=== PATIENT | female | born 1980 | race American Indian/Alaskan Native ===

== ENCOUNTER 2017-04-17 21:22 | Emergency (ER) | payer MEDICAID ==
[2017-04-17 21:56] LABS: Hematocrit 39.7 % (30.3-42.9); Hemoglobin 13.4 gm/dl (10.1-14.3); Mean Corpuscular HGB Conc 34 % (30-34); Mean Corpuscular Hemoglobin 29 pg (28-32); Mean Corpuscular Volume 86 fl (79-97); Platelet Count 356 K/mm3 (140-440); Red Cell Distribution Width 12.5 % (13.2-15.2); White Blood Count 14.1 K/mm3 (4.5-11.0)
[2017-04-17 22:12] LABS: Anion Gap 21 mmol/L; BUN/Creatinine Ratio 15; Blood Urea Nitrogen 12 mg/dL (7-17); Calcium 8.9 mg/dL (8.4-10.2); Carbon Dioxide 23 mmol/L (22-30); Chloride 98.6 mmol/L (98-107); Potassium 3.9 mmol/L (3.6-5.0); Sodium 139 mmol/L (137-145)
[2017-04-17 22:21] LABS: Glucose 510 mg/dL (65-100)
[2017-04-17 22:28] LABS: Basophils % (Manual) 0 % (0.0-1.8); Blastocytes % (Manual) 0 %; Eosinophils % (Manual) 0 % (0.0-4.3)
[2017-04-17 22:29] LABS: Diff Status Complete; RBC Morphology Normal
[2017-04-18] MEDS ORDERED: NACL 0.9% 1000 ML ONE (03:14)
[2017-04-18] MEDS ORDERED: NACL 0.9% 1000 ML 1,000 ML IV ONE (03:14)
--- NOTE | 2017-04-18 03:14 | Emergency Department Report ---
HPI - General Chief Complaint: Headache Time Seen by Provider: 04/18/17 03:08 - HPI HPI: Room 3 The patient is a 36-year-old female presenting with a chief complaint of hyperglycemia. The patient states she ran out of her insulin 2 days ago and was given a prescription however secondary to insurance she has not been able to get filled. Patient is to polyuria and polydipsia. The patient states she came to the emergency department because she knew her blood sugar was elevated and she wanted to be treated before she developed nausea and vomiting. Patient does not mention any other complaints Location: See above Duration: 2 days Quality: Hyperglycemia Severity: Moderate Modifying factors: [see above] Context: [see above] Mode of transportation: Unknown ED Past Medical Hx - Past Medical History Hx Diabetes: Yes Hx Asthma: Yes - Surgical History Additional Surgical History: C/S - Family History Family history: no significant - Social History Smoking Status: Never Smoker Substance Use Type: None - Medications Home Medications: Home Medications Medication Instructions Recorded Confirmed Last Taken Type Insulin Aspart [Novolog] 7 unit SQ AC 04/18/17 04/18/17 Unknown History Insulin Detemir [Levemir] 15 units SUB-Q QHS 04/18/17 04/18/17 Unknown History ED Review of Systems ROS: Stated complaint: MIGRANE HEADACHE Other details as noted in HPI Comment: All other systems reviewed and negative Constitutional: denies: chills, fever Eyes: denies: eye pain, eye discharge, vision change ENT: denies: ear pain, throat pain Respiratory: denies: cough, shortness of breath, wheezing Cardiovascular: denies: chest pain, palpitations Endocrine: increased thirst, increased urine Gastrointestinal: denies: abdominal pain, nausea, diarrhea Genitourinary: denies: urgency, dysuria, discharge Musculoskeletal: denies: back pain, joint swelling, arthralgia Skin: denies: rash, lesions Psychiatric: denies: anxiety, depression Hematological/Lymphatic: denies: easy bleeding, easy bruising Physical Exam - Physical Exam Vital Signs: Vital Signs 04/17/17 21:29 Temperature 98.2 F Pulse Rate 97 H Respiratory 20 Rate Blood Pressure 171/92 O2 Sat by Pulse 99 Oximetry Physical Exam: GENERAL: The patient is well-developed well-nourished female lying on stretcher not appearing to be in acute distress. [] HEENT: Normocephalic. Atraumatic. Extraocular motions are intact. Patient has moist mucous membranes. NECK: Supple. No meningitic signs are noted. No nuchal rigidity. Trachea midline CHEST/LUNGS: Clear to auscultation. There is no respiratory distress noted. HEART/CARDIOVASCULAR: Regular. There is no tachycardia. There is no gallop rub or murmur. ABDOMEN: Abdomen is soft, nontender. Patient has normal bowel sounds. There is no abdominal distention. SKIN: There is no rash. There is no edema. There is no diaphoresis. NEURO: The patient is awake, alert, and oriented. The patient is cooperative. The patient has normal speech. Cranial nerves II through XII grossly intact, no drift MUSCULOSKELETAL: There is no evidence of acute injury. ED Course Vital Signs 04/17/17 21:29 Temperature 98.2 F Pulse Rate 97 H Respiratory 20 Rate Blood Pressure 171/92 O2 Sat by Pulse 99 Oximetry - Reevaluation(s) Reevaluation #1: 04/18/17 04:39 Accu-Chek 258 ED Medical Decision Making - Lab Data Result diagrams: 04/17/17 21:40 04/18/17 03:08 Laboratory Tests 04/17/17 04/17/17 04/17/17 21:39 21:40 21:40 WBC 14.1 H RBC 4.60 Hgb 13.4 Hct 39.7 MCV 86 MCH 29 MCHC 34 RDW 12.5 L Plt Count 356 Lymph # Gold Reclaimer Add Manual Diff Complete Total Counted 100 Seg Neuts % (Manual) 67.0 Band Neutrophils % 0 Lymphocytes % (Manual) 26.0 Reactive Lymphs % (Man) 0 Monocytes % (Manual) 7.0 Eosinophils % (Manual) 0 Basophils % (Manual) 0 Metamyelocytes % 0 Myelocytes % 0 Promyelocytes % 0 Blast Cells % 0 Nucleated RBC % Not Reportable Seg Neutrophils # Man 9.4 H Band Neutrophils # 0.0 Lymphocytes # (Manual) 3.7 Abs React Lymphs (Man) 0.0 Monocytes # (Manual) 1.0 H Eosinophils # (Manual) 0.0 Basophils # (Manual) 0.0 Metamyelocytes # 0.0 Myelocytes # 0.0 Promyelocytes # 0.0 Blast Cells # 0.0 WBC Morphology Not Reportable Hypersegmented Neuts Not Reportable Hyposegmented Neuts Not Reportable Hypogranular Neuts Not Reportable Smudge Cells Not Reportable Toxic Granulation Not Reportable Toxic Vacuolation Not Reportable Dohle Bodies Not Reportable Pelger-Huet Anomaly Not Reportable Zbigniew Rods Not Reportable Platelet Estimate Appears normal Clumped Platelets Not Reportable Plt Clumps, EDTA Not Reportable Large Platelets Not Reportable Giant Platelets Not Reportable Platelet Satelliting Not Reportable Plt Morphology Comment Not Reportable RBC Morphology Normal Dimorphic RBCs Not Reportable Polychromasia Not Reportable Hypochromasia Not Reportable Poikilocytosis Not Reportable Anisocytosis Not Reportable Microcytosis Not Reportable Macrocytosis Not Reportable Spherocytes Not Reportable Pappenheimer Bodies Not Reportable Sickle Cells Not Reportable Target Cells Not Reportable Tear Drop Cells Not Reportable Ovalocytes Not Reportable Helmet Cells Not Reportable Bhardwaj-[place]olita Bodies Not Reportable [place] Rings Not Reportable Loman Cells Not Reportable Bite Cells Not Reportable Crenated Cell Not Reportable Elliptocytes Not Reportable Acanthocytes (Spur) Not Reportable Rouleaux Not Reportable Hemoglobin C Crystals Not Reportable Schistocytes Not Reportable Malaria parasites Not Reportable Link Bodies Not Reportable Hem Pathologist Commnt No VBG pH Sodium 139 Potassium 3.9 Chloride 98.6 Carbon Dioxide 23 Anion Gap 21 BUN 12 Creatinine 0.8 Estimated GFR > 60 BUN/Creatinine Ratio 15 Glucose 510 H* POC Glucose 446 H Calcium 8.9 HCG, Qual 04/17/17 04/17/17 21:40 21:40 WBC RBC Hgb Hct MCV MCH MCHC RDW Plt Count Lymph # Add Manual Diff Total Counted Seg Neuts % (Manual) Band Neutrophils % Lymphocytes % (Manual) Reactive Lymphs % (Man) Monocytes % (Manual) Eosinophils % (Manual) Basophils % (Manual) Metamyelocytes % Myelocytes % Promyelocytes % Blast Cells % Nucleated RBC % Seg Neutrophils # Man Band Neutrophils # Lymphocytes # (Manual) Abs React Lymphs (Man) Monocytes # (Manual) Eosinophils # (Manual) Basophils # (Manual) Metamyelocytes # Myelocytes # Promyelocytes # Blast Cells # WBC Morphology Hypersegmented Neuts Hyposegmented Neuts Hypogranular Neuts Smudge Cells Toxic Granulation Toxic Vacuolation Dohle Bodies Pelger-Huet Anomaly Zbigniew Rods Platelet Estimate Clumped Platelets Plt Clumps, EDTA Large Platelets Giant Platelets Platelet Satelliting Plt Morphology Comment RBC Morphology Dimorphic RBCs Polychromasia Hypochromasia Poikilocytosis Anisocytosis Microcytosis Macrocytosis Spherocytes Pappenheimer Bodies Sickle Cells Target Cells Tear Drop Cells Ovalocytes Helmet Cells Bhardwaj-Lolita Bodies [place] Rings Loman Cells Bite Cells Crenated Cell Elliptocytes Acanthocytes (Spur) Rouleaux Hemoglobin C Crystals Schistocytes Malaria parasites Link Bodies Hem Pathologist Commnt VBG pH 7.374 Sodium Potassium Chloride Carbon Dioxide Anion Gap BUN Creatinine Estimated GFR BUN/Creatinine Ratio Glucose POC Glucose Calcium HCG, Qual Negative - Differential Diagnosis hyperglycemia, DKA Critical care attestation.: If time is entered above; I have spent that time in minutes in the direct care of this critically ill patient, excluding procedure time. ED Disposition Clinical Impression: Hyperglycemia Disposition: DC-01 TO HOME OR SELFCARE Is pt being admited?: No Does the pt Need Aspirin: No Condition: Stable Instructions: Diabetic Hyperglycemia (ED) Additional Instructions: Return to the emergency department immediately should you develop worsening symptoms, fever, inability to tolerate food or liquid or any other concerns. Referrals: PRIMARY CAREMD [Primary Care Provider] - 3-5 Days Time of Disposition: 04:39
[2017-04-18 03:38] LABS: Anion Gap 21 mmol/L; BUN/Creatinine Ratio 23; Blood Urea Nitrogen 14 mg/dL (7-17); Calcium 8.5 mg/dL (8.4-10.2); Carbon Dioxide 21 mmol/L (22-30); Chloride 95.3 mmol/L (98-107); Sodium 133 mmol/L (137-145)
[2017-04-18 03:42] LABS: Glucose 522 mg/dL (65-100)
[2017-04-18 05:06] VITALS: BP 144/78
== END 2017-04-18 05:14 | disposition home or self-care (01) ==
LOC: ED 21:22
DX: E11.65 Type 2 diabetes mellitus with hyperglycemia (principal); Z79.4 Long term (current) use of insulin
CPT/HCPCS: 36415; 80048; 82805; 82962; 84703; 85007; 85025; 96361; 96374; 99284; J7030; J1815